=== PATIENT | female | born 1995 | race Caucasian/White ===

== ENCOUNTER → 2025-04-27 | Outpatient (CLI) | payer OTHER, SELFPAY ==
[2025-04-27 12:59] LABS: hCG Titer Quant., Serum 349 mIU/mL (<9 non-preg)
== END | disposition home or self-care (01) ==
LOC: BWCLAB 10:05
PROVIDERS: PCP Pediatrics; Referring Provider Advanced Practice Midwife; Visit Provider Advanced Practice Midwife
DX: O03.9 Complete or unspecified spontaneous abortion without complication (principal)
CPT/HCPCS: 36415; 84702

== ENCOUNTER → 2025-05-03 | Outpatient (CLI) | payer SELFPAY ==
[2025-05-03 17:19] LABS: hCG Titer Quant., Serum 29 mIU/mL (<9 non-preg)
== END | disposition home or self-care (01) ==
PROVIDERS: Advanced Practice Midwife; PCP Pediatrics; Visit Provider Obstetrics & Gynecology
DX: O03.9 Complete or unspecified spontaneous abortion without complication (principal)
CPT/HCPCS: 36415; 84702

== ENCOUNTER → 2025-05-12 | Outpatient (CLI) | payer SELFPAY ==
[2025-05-12 17:53] LABS: hCG Titer Quant., Serum 2 mIU/mL (<9 non-preg)
== END | disposition home or self-care (01) ==
PROVIDERS: PCP Pediatrics; Visit Provider Advanced Practice Midwife
DX: O03.9 Complete or unspecified spontaneous abortion without complication (principal)
CPT/HCPCS: 36415; 84702